=== PATIENT | female | born 1955 | race Caucasian/White ===

== ENCOUNTER → 2017-02-20 | Outpatient (CLI) | payer BC ==
--- NOTE | 2017-02-20 10:26 | MM ---
Reason for exam: additional evaluation requested from prior study. Last mammogram was performed 1 year and 1 month ago. History: Patient is postmenopausal, has history of breast cancer at age 55, and is nulliparous. Implant in the left breast, January 2012. Reduction of the right breast, January 2012. Mastectomy of the left breast, October 2011. Malignant u/S left breast localization of the left breast, September 23, 2011. Malignant u/S left breast localization additional of the left breast, September 23, 2011. Malignant US LT VAD breast biopsy of the left breast, September 01, 2011. Took estrogen for 2 months. Took progesterone for 2 months. Taking antineoplastic for 3 years beginning at age 55. Taking other hormone for 4 years. Physical Findings: Nurse did not find any significant physical abnormalities on exam. MG 3D Diag Mammo W/Cad RT CC, MLO, and LM view(s) were taken of the right breast. Prior study comparison: February 04, 2016, right breast MG 3d diag mammo w/cad RT. February 02, 2015, right breast MG 3d diag mammo w/cad RT. The breast tissue is heterogeneously dense. This may lower the sensitivity of mammography. Stable benign calcifications. There is no discrete abnormality. No significant new findings when compared with previous films. These results were verbally communicated with the patient and result sheet given to the patient on 02/20/17. ASSESSMENT: Benign, BI-RAD 2 RECOMMENDATION: Follow-up diagnostic mammogram of the right breast in 1 year.
== END | disposition home or self-care (01) ==
LOC: RADMAMWWP 09:16
PROVIDERS: ATTEND Internal Medicine Hematology & Oncology
DX: Z08 Encounter for follow-up examination after completed treatment for malignant neoplasm (principal); Z85.3 Personal history of malignant neoplasm of breast
CPT/HCPCS: 77065; G0279

== ENCOUNTER → 2018-03-17 | Outpatient (CLI) | payer BC ==
--- NOTE | 2018-03-17 08:18 | MM ---
Reason for exam: additional evaluation requested from prior study. Last mammogram was performed 1 year and 1 month ago. History: Patient is postmenopausal, has history of breast cancer at age 55, and is nulliparous. Implant in the left breast, January 2012. Reduction of the right breast, January 2012. Mastectomy of the left breast, October 2011. Malignant u/S left breast localization of the left breast, September 23, 2011. Malignant u/S left breast localization additional of the left breast, September 23, 2011. Malignant US LT VAD breast biopsy of the left breast, September 01, 2011. Took estrogen for 2 months. Took progesterone for 2 months. Taking antineoplastic for 3 years beginning at age 55. Taking other hormone for 4 years. Physical Findings: Nurse did not find any significant physical abnormalities on exam. MG 3D Diag Mammo W/Cad RT CC, MLO, ML, and spot compression CC view(s) were taken of the right breast. Prior study comparison: February 20, 2017, right breast MG 3d diag mammo w/cad RT. February 04, 2016, right breast MG 3d diag mammo w/cad RT. There are scattered fibroglandular densities. There is chronic nodularity in the right breast laterally. Central asymmetric densities completely disperse on 3D spot views. No significant new findings when compared with previous films. These results were verbally communicated with the patient and result sheet given to the patient on 03/17/18. ASSESSMENT: Negative, BI-RAD 1 RECOMMENDATION: Follow-up diagnostic mammogram of the right breast in 1 year.
== END | disposition home or self-care (01) ==
LOC: RADMAMWWP 07:08
PROVIDERS: ATTEND Internal Medicine Hematology & Oncology
DX: Z08 Encounter for follow-up examination after completed treatment for malignant neoplasm (principal); Z85.3 Personal history of malignant neoplasm of breast
CPT/HCPCS: 77061; 77065

== ENCOUNTER → 2019-03-21 | Outpatient (CLI) | payer BC ==
--- NOTE | 2019-03-21 10:43 | BD ---
EXAMINATION TYPE: Axial Bone Density DATE OF EXAM: 03/21/2019 COMPARISON: NONE CLINICAL HISTORY: M [age] Height: 62 Weight: 158.6 FRAX RISK QUESTIONS: Alcohol (3 or more units per day): no Family History (Parent hip fracture): no Glucocorticoids (More than 3mos): no (Ex: prednisone, prednisolone, methylprednisolone, dexamethasone, and hydrocortisone). History of Fracture in Adulthood: yes Secondary Osteoporosis: 1. Type 1 Diabetes: no 2. Hyperthyroidism: no 3. Menopause before 45: no 4. Malnutrition: no 5. Chronic liver disease: no Rheumatoid Arthritis: no Current Tobacco Use: no RISK FACTORS HISTORY OF: History of Wrist Fracture: right When: 5 years ago Surgery to Spine/Hip(right/left)/Wrist (right/left): right wrist-5 years ago/cyst on left hip as a ch ild Family History of Osteoporosis: no Active: yes Diet low in dairy products/other sources of calcium: no Postmenopausal woman: age 48 lup[place] Lost more than 2 inches in height since high school: no MEDICATIONS: Singulair, Wellbutrin, simvastatin, rescue inhaler Thyroid Medications: thyroid How Lon years Osteoporosis Medications: had a Prolia shot in feb 2018 Additional History: EXAM MEASUREMENTS: Bone mineral densitometry was performed using the [employer] System. Bone mineral density as measured about the Lumbar spine is: ----- L1-L4(G/cm2): 0.932 T Score Values are as follows: ----- L2: -1.9 ----- L3: -1.4 ----- L4: -2.4 ----- L1-L4: -2.1 Bone mineral density has: decreased -2.8 % since study of: 03.22.2009 Bone mineral density about the R hip (g/cm2): 0.766 Bone mineral density about the L hip (g/cm2): 0.823 T Score values are as follows: -----R Neck: -2.0 -----L Neck: -1.5 -----R Total: -1.7 -----L Total: -1.1 Bone mineral density has: decreased -7.9 % since study of: 03.22.2009 IMPRESSION: Osteopenia (T Score between -2.5 and -1). There is slightly increased risk of fracture and the patient may be considered for treatment. Re-Screen 2-5 years. NOTE: T-SCORE=SD OF THE YOUNG ADULT MEAN.
--- NOTE | 2019-03-22 11:12 | MM ---
Reason for exam: screening (asymptomatic). Last mammogram was performed 1 year ago. History: Patient is postmenopausal, has history of breast cancer at age 55, and is nulliparous. Implant in the left breast, January 2012. Reduction of the right breast, January 2012. Mastectomy of the left breast, October 2011. Malignant u/S left breast localization of the left breast, September 23, 2011. Malignant u/S left breast localization additional of the left breast, September 23, 2011. Malignant US LT VAD breast biopsy of the left breast, September 01, 2011. Took estrogen for 2 months. Took progesterone for 2 months. Taking antineoplastic for 3 years beginning at age 55. Taking other hormone for 4 years. Physical Findings: A clinical breast exam by your physician is recommended on an annual basis and results should be correlated with mammographic findings. MG 3D Scr Andrew Unilateral W/Cad CC and MLO view(s) were taken of the right breast. Prior study comparison: March 17, 2018, right breast MG 3d diag mammo w/cad RT. February 20, 2017, right breast MG 3d diag mammo w/cad RT. The breast tissue is heterogeneously dense. This may lower the sensitivity of mammography. Finding: There is a single dystrophic calcifications in the upper outer quadrant of the right breast. There is no discrete abnormality. ASSESSMENT: Benign, BI-RAD 2 RECOMMENDATION: Follow-up diagnostic mammogram of the right breast in 1 year.
== END | disposition home or self-care (01) ==
LOC: RADMAMWWP 07:07
PROVIDERS: ATTEND Internal Medicine Hematology & Oncology
DX: Z12.31 Encounter for screening mammogram for malignant neoplasm of breast (principal); Z85.3 Personal history of malignant neoplasm of breast; Z90.12 Acquired absence of left breast and nipple; M85.89 Other specified disorders of bone density and structure, multiple sites
CPT/HCPCS: 77067; 77080

== ENCOUNTER → 2020-03-23 | Outpatient (CLI) | payer BC ==
--- NOTE | 2020-03-23 11:52 | MM ---
Reason for exam: additional evaluation requested from prior study. Last mammogram was performed 1 year ago. History: Patient is postmenopausal, has history of breast cancer at age 55, and is nulliparous. Implant in the left breast, January 2012. Reduction of the right breast, January 2012. Mastectomy of the left breast, October 2011. Malignant u/S left breast localization of the left breast, September 23, 2011. Malignant u/S left breast localization additional of the left breast, September 23, 2011. Malignant US LT VAD breast biopsy of the left breast, September 01, 2011. Took estrogen for 2 months. Took progesterone for 2 months. Taking antineoplastic for 3 years beginning at age 55. Taking other hormone for 4 years. Physical Findings: Nurse did not find any significant physical abnormalities on exam. MG 3D Diag Mammo W/Cad RT CC and MLO view(s) were taken of the right breast. Prior study comparison: March 21, 2019, bilateral MG 3d scr [place] unilateral w/cad. March 17, 2018, right breast MG 3d diag mammo w/cad RT. The breast tissue is heterogeneously dense. This may lower the sensitivity of mammography. Stable benign calcifications right breast. No significant new findings when compared with previous films. These results were verbally communicated with the patient and result sheet given to the patient on 03/23/20. ASSESSMENT: Benign, BI-RAD 2 RECOMMENDATION: Follow-up diagnostic mammogram of the right breast in 1 year.
== END ==
LOC: RADMAMWWP 11:00
PROVIDERS: ATTEND Internal Medicine Hematology & Oncology
DX: Z08 Encounter for follow-up examination after completed treatment for malignant neoplasm (principal); Z85.3 Personal history of malignant neoplasm of breast
CPT/HCPCS: 77061; 77065

== ENCOUNTER → 2021-03-25 | Outpatient (CLI) | payer BC ==
--- NOTE | 2021-03-25 13:35 | MM ---
Reason for exam: additional evaluation requested from prior study. Last mammogram was performed 1 year ago. History: Patient is postmenopausal, has history of breast cancer at age 55, and is nulliparous. Implant in the left breast, January 2012. Reduction of the right breast, January 2012. Mastectomy of the left breast, October 2011. Malignant u/S left breast localization of the left breast, September 23, 2011. Malignant u/S left breast localization additional of the left breast, September 23, 2011. Malignant US LT VAD breast biopsy of the left breast, September 01, 2011. Took estrogen for 2 months. Took progesterone for 2 months. Taking antineoplastic for 3 years beginning at age 55. Taking other hormone for 4 years. Physical Findings: Nurse did not find any significant physical abnormalities on exam. MG 3D Diag Mammo W/Cad RT CC and MLO view(s) were taken of the right breast. Prior study comparison: March 23, 2020, right breast MG 3d diag mammo w/cad RT. March 21, 2019, bilateral MG 3d scr [place] unilateral w/cad. There are scattered fibroglandular densities. Solitargy course dystrophic calcification right upper outer quadrant is unchanged. No significant new findings when compared with previous films. These results were verbally communicated with the patient and result sheet given to the patient on 03/25/21. ASSESSMENT: Benign, BI-RAD 2 RECOMMENDATION: Follow-up diagnostic mammogram of the right breast in 1 year.
== END | disposition home or self-care (01) ==
LOC: RADMAMWWP 13:03
PROVIDERS: ATTEND Internal Medicine Hematology & Oncology
DX: R92.8 Other abnormal and inconclusive findings on diagnostic imaging of breast (principal); Z85.3 Personal history of malignant neoplasm of breast; Z78.0 Asymptomatic menopausal state
CPT/HCPCS: 77061; 77065

== ENCOUNTER → 2023-02-21 | Outpatient (CLI) | payer MEDICARE ==
[2023-02-21 13:42] LABS: HCT 40.8 % (37.2-46.3); HGB 12.8 g/dL (12.0-15.0); MCH 27.6 pg (27.0-32.0); MCHC 31.4 g/dL (32.0-37.0); MCV 88.1 FL (80.0-97.0); Mean Platelet Volume 10.1 FL (9.5-12.2); NRBC Per 100 WBC 0 X 10*3/uL (0.00-0.01); Platelet Count 343 X 10*3/uL (140-440); RBC 4.63 X 10*6/uL (4.10-5.20); RDW 13.8 % (11.5-14.5); WBC 6.73 X 10*3/uL (4.50-10.00)
[2023-02-21 13:56] LABS: ALT 20 U/L (8-44); AST 18 U/L (13-35); Albumin 4.3 g/dL (3.8-4.9); Albumin/Globulin Ratio 1.79 Ratio (1.60-3.17); Alkaline Phosphatase 69 U/L (41-126); BUN/Creat Ratio 15.36 Ratio (12.00-20.00); Blood Urea Nitrogen 16.9 mg/dL (9.0-27.0); Calcium 9.9 mg/dL (8.7-10.3); Chloride 106 mmol/L (96-109); Globulin 2.4 g/dL (1.6-3.3); Glucose 115 mg/dL (70-110); Potassium 4.1 mmol/L (3.5-5.5); Sodium 142 mmol/L (135-145); Total Bilirubin 0.2 mg/dL (0.3-1.2); Total Protein 6.7 g/dL (6.2-8.2)
== END | disposition home or self-care (01) ==
LOC: LABPAT 08:19
PROVIDERS: ATTEND Family Medicine
DX: Z01.812 Encounter for preprocedural laboratory examination (principal); E78.5 Hyperlipidemia, unspecified; R94.39 Abnormal result of other cardiovascular function study
CPT/HCPCS: 36415; 80053; 85027

== ENCOUNTER → 2023-02-24 | Day surgery (SDC) | payer BC, MEDICARE ==
[~2023-02-24] MED LIST: ACETAMINOPHEN TAB 325 MG TAB ONE; ALPRAZolam 0.25 MG TAB PO PRN; ALPRAZolam 0.5 MG TAB PO PRN; ASPIRIN 325 MG TAB PO STA; HEPARIN SODIUM 1,000 UN/ML (10ML VL) IV ONE; HEPARIN SODIUM,PORCINE (1 ML) 2,500 UNIT in SODIUM CHLORIDE 0.9% 250 ML IRRIGATION PRN; HEPARIN SODIUM,PORCINE 10,000 UNIT in SODIUM CHLORIDE 0.9% 1,000 ML IRRIGATION PRN; IOPAMIDOL-370 100ML BTL INJ ONE; LIDOCAINE 1% INJ 10MG/ML (20 ML MDV) ONE; LIDOCAINE 1% INJ 10MG/ML (20 ML MDV) SQ ONE; MIDAZOLAM 2 MG/2 ML VIAL IVP ONE; NITROGLYCERIN SL TABS 0.4 MG TAB SUBLINGUAL PRN; RX INFO: IV CONTRAST WAS GIVEN 1 EACH MISC MISCELLANE PRN; SODIUM CHLORIDE 0.9% 1,000 ML IV SCH; SODIUM CHLORIDE 0.9% 1,000 ML in EMPTY BAG 1 BAG IV SCH; VERAPAMIL 2.5 MG/ML 2 ML AMP ONE; fentaNYL (PF) 50 MCG/ML 2 ML AMP IVP ONE; fentaNYL (PF) 50 MCG/ML 2 ML AMP ONE
[2023-02-24 11:26] VITALS: RESP 16; TEMP 97.9
--- NOTE | 2023-02-24 12:56 | P.CARDCATH ---
Date of Procedure: 02/24/23 Description of Procedure: DIAGNOSTIC CORONARY ANGIOGRAPHY and LEFT HEART CATH REPORT PROCEDURES PERFORMED: Left heart catheterization Selective coronary angiography Moderate conscious sedation 17 mins Right radial access INDICATION: Positive nuclear stress test Patient was seen in cardiology clinic by Dr. winters to get evaluated for shortness of breath and dyspnea on exertion. As a part of workup she got a nuclear Lexiscan myocardial perfusion imaging stress test. The nuclear stress test showed moderate density moderate size anterior wall perfusion defect which is mostly reversible. For this patient was scheduled for an outpatient cardiac catheterization procedure. CONSENT: I have discussed the risks, benefits and alternative therapies for the above-mentioned procedure, sedation/analgesia and necessary blood product administration (if indicated, as they pertain to this patient). The patient has indicated understanding and acceptance of the risks and procedures discussed. Conscious Sedation: Patient's ECG, heart rate, blood pressure, pulse oximetry was monitored throughout the duration of procedure under my direct supervision. 1 mg Versed and 25 mg Fentanyl were used for induction of moderate conscious sedation. Total duration of moderate concious sedation 17 minutes. PROCEDURE: After explaining the risks, benefits and alternatives of the above mentioned procedures in detail to the patient, informed consent was obtained. Patient was taken to the catheterization lab, prepped and draped in usual sterile fashion using universal precuations. Barbow and chano test were performed to confirm adequate perfusion to fingers. Ultrasound was used to identify the radial artery. 1% lidocaine was infiltrated over the right radial artery. A 6-Azeri sheath was placed and secured in the right radial artery using modified Seldinger technique. The sheath was flushed and 5 mg verapamil was administered intra-arterially. J tipped wire was advanced under fluoroscopic guidance. Once the wire tip reached aortic root 4500 units of IV heparin was given. Over the wire JL4 diagnostic catheter was advanced. Wire was removed, catheter was flushed and manipulated under fluoroscopy to selectively engaged the left coronary ostium. Left coronary angioplasty was performed in different angiographic projections. This catheter was exchanged for a JR4 diagnostic catheter over the wire. The catheter was flushed and manipulated to cross the aortic valve. LV pressures were obtained. Pullback was performed across aortic valve and catheter was manipulated to selectively engage the right coronary ostium under fluoroscopic guidance. Right coronary angiography was performed in different angiographic projections. Catheter was removed over the wire. Radial sheath was flushed. The right radial sheath was removed and a TR band was placed with excellent patent hemostasis was achieved. The patient tolerated the procedure well. Patient was transported back to the post catheterization holding area in stable condition. Angiographic images were reviewed in detail. HEMODYNAMICS: Aortic Pressure: 125/85 mmHg. LV pressure: 125/4 mmHg. LVEDP 18 mmHg. SELECTIVE CORONARY ARTERIOGRAPHY: LEFT MAIN: The left main is a large caliber vessel which bifurcates into the LAD and circumflex. Left main appears angiographically normal. LEFT ANTERIOR DESCENDING CORONARY ARTERY: LAD is a large caliber vessel which wraps around to the apex. It appears angiographically normal. It gives rise to 2 diagonal branches which are medium caliber and size. They appears angiographically normal. Distally these arteries become tortuous LEFT CIRCUMFLEX CORONARY ARTERY: It is nondominant vessel. Left circumflex is a moderate caliber vessel. It appears angiographically normal. It gives rise to a small OM1 branch and a medium size OM 2 branch. Distally these arteries become tortuous. RIGHT CORONARY ARTERY: Dominant vessel. The right coronary artery is a large caliber vessel which gives PDA and PLV branch. It appears angiographically normal. Distally PDA and PL branches become tortuous. IMPRESSION: Angiographically normal coronary arteries as described above. Overall tortuous coronary arteries Normal left sided filling pressures PLAN: Aggressive risk factor modification per most recent ACC/AHA guidelines. 150 cc fluids for 3 hours Discharge home in 3 hours Follow-up in the office in 1-2 weeks. Performing Physician Solomon Duran MD
[2023-02-24 19:38] VITALS: BP 158/67; PULSE 56
== END ==
LOC: CATHCVL 10:02
PROVIDERS: ATTEND Student in an Organized Health Care Education/Training Program
DX: R94.39 Abnormal result of other cardiovascular function study (principal)
CPT/HCPCS: 93458; 76937; 99152; C1769; C1894; J2250; J2001; J3010; J1644; Q9967

== ENCOUNTER → 2023-03-27 | Outpatient (CLI) | payer MEDICARE ==
--- NOTE | 2023-03-30 08:40 | MM ---
Reason for Exam: Screening (asymptomatic). Last screening mammogram was performed 12 month(s) ago. Patient History: Menarche at age 11. Patient has no children. Postmenopausal. Breast cancer, age 55. Estrogen for 2 months. Progesterone for 2 months. 10/2011, Mastectomy on the Left side. 01/2012, Reduction on the Right side. 09/23/2011, Malignant Excisional Biopsy on the left side. 09/23/2011, Malignant Excisional Biopsy on the left side. 09/01/2011, Malignant Core Biopsy on the left side. 01/2012, Implant on the left side. Prior Study Comparison: 03/23/2020 Right Diagnostic Mammogram, [facility]. 03/25/2021 Right Diagnostic Mammogram, [facility]. 03/26/2022 Right MG 3D diag mammo w/cad RT, [facility]. Tissue Density: Right: There are scattered fibroglandular densities. Findings: There is no suspicious group of microcalcifications or new suspicious mass. Benign-appearing calcifications right breast. Overall Assessment: Benign, BI-RAD 2 Management: Screening Mammogram of both breasts in [address] [facility] will attempt to contact patient to return for supplemental views and ultrasound if indicated. Patient should continue monthly self-breast exams. A clinical breast exam by your physician is recommended on an annual basis. This exam should not preclude additional follow-up of suspicious palpable abnormalities. Note on Chhaya scores and lifetime risk: 1. A Chhaya score greater than 3% is considered moderate risk. If this is the case, consider specialist referral to assess eligibility for a risk reducing agent. 2. If overall lifetime risk for the development of breast cancer is 20% or higher, the patient may qualify for future screening with alternating mammogram and breast MRI. Electronically signed and approved by: Franklin Lowery DO
== END | disposition home or self-care (01) ==
LOC: RADMAMWWP 11:07
PROVIDERS: ATTEND Internal Medicine Hematology & Oncology
DX: Z12.31 Encounter for screening mammogram for malignant neoplasm of breast (principal); Z85.3 Personal history of malignant neoplasm of breast; Z98.82 Breast implant status; Z78.0 Asymptomatic menopausal state; Z90.12 Acquired absence of left breast and nipple
CPT/HCPCS: 77067

== ENCOUNTER → 2024-01-08 | Outpatient (CLI) | payer MEDICARE ==
[2024-01-08 15:30] LABS: Basophils # (A) 0.07 X 10*3/uL (0.00-0.10); Eosinophils # (A) 0.18 X 10*3/uL (0.04-0.35); Eosinophils % (A) 2.7 %; HCT 39.7 % (37.2-46.3); HGB 12.9 g/dL (12.0-15.0); Lymphocytes # (A) 1.52 X 10*3/uL (0.90-5.00); Lymphocytes % (A) 22.4 %; MCH 28.5 pg (27.0-32.0); MCHC 32.5 g/dL (32.0-37.0); MCV 87.6 FL (80.0-97.0); Monocytes # (A) 0.55 X 10*3/uL (0.20-1.00); Monocytes % (A) 8.1 %; NRBC Per 100 WBC 0 X 10*3/uL (0.00-0.01); Neutrophils # (A) 4.43 X 10*3/uL (1.80-7.70); Neutrophils % (A) 65.4 %; Platelet Count 420 X 10*3/uL (140-440); RBC 4.53 X 10*6/uL (4.10-5.20); RDW 13.8 % (11.5-14.5); WBC 6.78 X 10*3/uL (4.50-10.00)
[2024-01-08 20:41] LABS: ALT 22 U/L (8-44); AST 21 U/L (13-35); Albumin 4.3 g/dL (3.8-4.9); Albumin/Globulin Ratio 1.59 Ratio (1.60-3.17); Alkaline Phosphatase 65 U/L (41-126); BUN/Creat Ratio 14.27 Ratio (12.00-20.00); Blood Urea Nitrogen 15.7 mg/dL (9.0-27.0); Calcium 9.7 mg/dL (8.7-10.3); Carbon Dioxide 24.3 mmol/L (21.6-31.8); Chloride 106 mmol/L (96-109); Chol/HDL Ratio 2.34 Ratio; Globulin 2.7 g/dL (1.6-3.3); Glucose 89 mg/dL (70-110); LDL Cholesterol,Calculated 89.7 mg/dL (0.0-131.0); Potassium 4.7 mmol/L (3.5-5.5); Sodium 141 mmol/L (135-145); T4, Free (Free Thyroxine) 1.55 ng/dL (0.80-1.80); Total Bilirubin 0.4 mg/dL (0.3-1.2); VLDL Calculation 16.66 mg/dL (5.00-40.00)
== END | disposition home or self-care (01) ==
LOC: LABWHC1 11:57
PROVIDERS: ATTEND Family Medicine
DX: Z00.01 Encounter for general adult medical examination with abnormal findings (principal); E03.9 Hypothyroidism, unspecified
CPT/HCPCS: 36415; 80053; 80061; 82306; 84439; 84443; 84481; 85025

== ENCOUNTER → 2024-07-28 | Outpatient (CLI) | payer MEDICARE ==
[2024-07-28 12:34] LABS: ALT 21 U/L (4-34); AST 24 U/L (14-36); African American GFR (CKD) 57 (>60 ml/min/1.73 sqM); Albumin 4.4 g/dL (3.5-5.0); Alkaline Phosphatase 61 U/L (38-126); Anion Gap 6 mmol/L; Blood Urea Nitrogen 19 mg/dL (7-17); Calcium 9.5 mg/dL (8.4-10.2); Carbon Dioxide 28 mmol/L (22-30); Chloride 106 mmol/L (98-107); Glucose 87 mg/dL (74-99); Non-African American GFR(CKD) 49 (>60 ml/min/1.73 sqM); Potassium 4.1 mmol/L (3.5-5.1); Sodium 140 mmol/L (137-145); Total Bilirubin 0.4 mg/dL (0.2-1.3); Total Protein 6.9 g/dL (6.3-8.2)
[2024-07-28 12:57] LABS: Basophils # (A) 0.07 10*3/uL (0.00-0.10); Basophils % (A) 1.3 %; Eosinophils # (A) 0.15 10*3/uL (0.04-0.35); Eosinophils % (A) 2.9 %; HCT 40.6 % (37.2-46.3); HGB 13.3 g/dL (12.0-15.0); Lymphocytes # (A) 1.37 10*3/uL (0.90-5.00); Lymphocytes % (A) 26.2 %; MCH 28.2 pg (27.0-32.0); MCHC 32.8 g/dL (32.0-37.0); MCV 86.2 fL (80.0-97.0); Monocytes # (A) 0.54 10*3/uL (0.20-1.00); Monocytes % (A) 10.3 %; Neutrophils # (A) 3.07 10*3/uL (1.80-7.70); Neutrophils % (A) 58.7 %; Platelet Count 339 10*3/uL (140-440); RBC 4.71 10*6/uL (4.10-5.20); RDW 13.8 % (11.5-14.5); WBC 5.23 10*3/uL (4.50-10.00)
--- NOTE | 2024-07-28 13:31 | BD ---
EXAMINATION TYPE: Axial Bone Density DATE OF EXAM: 07/28/2024 CLINICAL HISTORY: 68 years old Female. ICD-10 CODE: Z78.0 ASYMPTOMATIC MENOPAUSAL STATE , Additional History: Height: 61.7 Weight: 167 FRAX RISK QUESTIONS: Glucocorticoids (More than 3mos): yes (Ex: prednisone, prednisolone, methylprednisolone, dexamethasone, and hydrocortisone). History of Fracture in Adulthood: yes Secondary Osteoporosis: RISK FACTORS HISTORY OF: History of Wrist Fracture: yes, right When: 2012 Surgery to Spine/Hip(right/left)/Wrist (right/left): right wrist When: 2013 MEDICATIONS: Thyroid Medications: Which medication: Levothyroxine How Long: about 10 years EXAM MEASUREMENTS: Bone mineral densitometry was performed using the [employer] System. Bone mineral density as measured about the Lumbar spine is: ----- L1-L4(G/cm2): 0.948 T Score Values are as follows: ----- L1: -2.7 ----- L2: -1.9 ----- L3: -1.7 ----- L4: -1.8 ----- L1-L4: -1.9 Z Score Values are as follows: ----- L1: -1.4 ----- L2: -0.5 ----- L3: -0.4 ----- L4: -0.5 ----- L1-L4: -0.6 Bone mineral density has: Increased 1.7% since study of: 03-21-19 Bone mineral density about the R hip (g/cm2): 0.738 Bone mineral density about the L hip (g/cm2): 0.822 T Score values are as follows: -----R Neck: -2.4 -----L Neck: -1.7 -----R Total: -2.1 -----L Total: -1.5 Z Score values are as follows: -----R Neck: -0.9 -----L Neck: -0.2 -----R Total: -0.9 -----L Total: -0.2 Bone mineral density has: Decreased -6.1% since study of: 03-21-19 FRAX%s: The graph provided illustrates a 21.6% chance for a major osteoporotic fx and a 5.2% chance f or the hips probability for fx in 10 years time. IMPRESSION: Osteopenia (T Score between -2.5 and -1). There is slightly increased risk of fracture and the patient may be considered for treatment. Re-Screen 2-5 years. NOTE: T-SCORE=SD OF THE YOUNG ADULT MEAN. [facility], , 07/28/2024 1:29 PM
[2024-07-29 13:58] LABS: T4, Free (Free Thyroxine) 1.38 (0.80-1.80)
== END | disposition home or self-care (01) ==
LOC: RADBDWWP 11:31
PROVIDERS: ATTEND Family Medicine
DX: M85.89 Other specified disorders of bone density and structure, multiple sites (principal); E03.9 Hypothyroidism, unspecified; E78.5 Hyperlipidemia, unspecified; Z78.0 Asymptomatic menopausal state
CPT/HCPCS: 77080; 80053; 84439; 84443; 84481; 85025